=== PATIENT | male | born 1955 | race Caucasian/White ===

== ENCOUNTER 2018-03-25 10:30 | Emergency (ER) | payer OTHER ==
--- NOTE | 2018-03-25 12:23 | ED Physician Documentation ---
PD HPI BACK INJURY - Stated complaint Stated Complaint: BACK PX - History obtained from History obtained from: Patient - History of Present Illness Location: Lower Type of injury: Twist (he was supporting himself with one hand, bending over, and his hand slipped, causing a twist and bend abruptly for low back. With pain to the right low back.) Where injury occurred: Work Timing - onset: Today Timing - details: Abrupt onset, Still present Quality: Pain, Spasm, Other (does not radiate to the legs.) Improved by: Rest Worsened by: Moving, Palpating Associated symptoms: No: Fever, Weakness, Numbness, Incontinent of urine Contributing factors: No: Anticoagulated, Prior back surgery Similar symptoms before: Has not had sx before Recently seen: Not recently seen Review of Systems Constitutional: denies: Fever, Chills, Myalgias Nose: denies: Rhinorrhea / runny nose, Congestion Throat: denies: Sore throat Respiratory: denies: Cough GI: denies: Abdominal Pain, Nausea, Vomiting, Diarrhea Skin: denies: Rash, Lesions Musculoskeletal: reports: Back pain. denies: Neck pain Neurologic: denies: Focal weakness, Numbness PD PAST MEDICAL HISTORY - Past Medical History Past Medical History: Yes : Benign prostate hypertrophy - Past Surgical History Past Surgical History: Yes General: Appendectomy - Present Medications Home Medications: Ambulatory Orders Medication Instructions Recorded Confirmed Methocarbamol [Robaxin] 500 mg PO Q6H PRN #25 tablet 03/25/18 Naproxen [Naprosyn] 500 mg PO BID PRN #20 tablet 03/25/18 Tamsulosin [Flomax] 0.4 mg PO ONCE 03/25/18 03/25/18 Tramadol HCl 50 mg PO Q6H PRN #20 tablet 03/25/18 - Allergies Allergies/Adverse Reactions: Allergies Allergy/AdvReac Type Severity Reaction Status Date / Time No Known Drug Allergies Allergy Verified 03/25/18 10:52 - Social History Does the pt smoke?: No Smoking Status: Never smoker Does the pt drink ETOH?: Yes Does the pt have substance abuse?: No - Immunizations Immunizations are current?: Yes - POLST Patient has POLST: No PD ED PE NORMAL - Vitals Vital signs reviewed: Yes - General General: Alert and oriented X 3, Well developed/nourished, Other (appears in pain with ROM; guarding low back movement. ) - Cardiac Cardiac: RRR, No murmur - Respiratory Respiratory: Clear bilaterally - Abdomen Abdomen: Soft, Non tender - Male Male : Deferred - Rectal Rectal: Deferred - Back Back: No CVA TTP, No spinal TTP (tender to right adjacent muscles and at SI area. ) - Derm Derm: Normal color, Warm and dry, No rash - Extremities Extremities: No tenderness to palpate, Normal ROM s pain - Neuro Neuro: Alert and oriented X 3, No motor deficit, No sensory deficit, Other ( normal patellar reflexes. ) Results - Vitals Vitals: Oxygen O2 Source Room air - Rads (name of study) lumbar spine Radiology: Prelim report reviewed (normal) PD MEDICAL DECISION MAKING - ED course Complexity details: reviewed results, considered differential (sounds like muscular back pain but was abrupt injury, so got xrays. No other red flags one exam. ), d/w patient - Sepsis Event Vital Signs: Oxygen O2 Source Room air Departure - Departure Disposition: 01 Home, Self Care Clinical Impression: Lumbar strain Qualifiers: Encounter type: initial encounter Qualified Code(s): S39.012A - Strain of muscle, fascia and tendon of lower back, initial encounter Condition: Stable Record reviewed to determine appropriate education?: Yes Instructions: ED Sprain Strain Lumbar Prescriptions: Methocarbamol [Robaxin] 500 mg PO Q6H PRN #25 tablet PRN Reason: Spasms Naproxen [Naprosyn] 500 mg PO BID PRN #20 tablet PRN Reason: Pain Tramadol HCl 50 mg PO Q6H PRN #20 tablet PRN Reason: Pain Comments: Your x-rays appear normal with good alignment, disc spaces, vertebral shape. Presume you pulled some muscle and ligament and the low back with the injury. This can take several days to week or so to get better. Gentle stretching and heat and light activity are good. You can use some Tylenol or ibuprofen if needed for pains. If it does worsen more than some anti-inflammatories regularly such as naproxen or ibuprofen in conjunction with muscle relaxant methocarbamol and then Tylenol or tramadol if needed for pains. Physical treatments are good for this such as massage or chiropractic treatment. Recheck if not better over the next week. Forms: Activity restrictions Discharge Date/Time: 03/25/18 13:10
--- NOTE | 2018-03-25 13:04 | XRAY Report ---
Procedure Date: 03/25/2018 Accession Number: [id number] / [id number] Procedure: XR - Lumbar Spine 2 View CPT Code: FULL RESULT: EXAM: LUMBOSACRAL SPINE RADIOGRAPHY EXAM DATE: 03/25/2018 12:53 PM. CLINICAL HISTORY: Right low back pain after slip and twist. COMPARISONS: None. TECHNIQUE: 3 views. FINDINGS: Alignment: Slight anterior listhesis L3 on L4. Minimal thoracolumbar junction levoscoliosis. Bones: No fractures or bone lesions. Disks: Mild L3-L4 and L5-S1 disk space narrowing. Facets: Lower lumbar degenerative changes. Sacroiliac Joints: Unremarkable. IMPRESSION: Early degenerative changes lumbar spine with grade 1 anterior listhesis L3 on L4. Otherwise negative. RADIA
[2018-03-25 13:11] VITALS: BP 130/70
== END 2018-03-25 13:10 | disposition home or self-care (01) ==
LOC: ED 10:30
DX: S33.5XXA Sprain of ligaments of lumbar spine, initial encounter (principal); X50.9XXA Other and unspecified overexertion or strenuous movements or postures, initial encounter; Y99.0 Civilian activity done for income or pay
CPT/HCPCS: 72100; 99283

== ENCOUNTER 2018-09-07 09:40 | Day surgery (SDC) | payer OTHER ==
[2018-09-07] MEDS ORDERED: LIDO GARGLE 30 ML BOTTLE ONE (10:15)
[2018-09-07] MEDS ORDERED: LACTATED RINGERS 1,000 ML IV ONE ×2 (10:19→11:58)
[2018-09-07] MEDS ORDERED: MIDAZOLAM 2 MG/2 ML VIAL IVP ONE (10:55)
[2018-09-07] MEDS ORDERED: fentaNYL 250 MCG/5 ML VIAL IVP ONE (10:55)
[2018-09-07] MEDS ORDERED: BENZOCAINE/TETRACAINE/BUTAMBEN 20 GM TOP ONE (11:03)
[2018-09-07 13:06] VITALS: BP 118/68
== END 2018-09-07 09:41 | disposition home or self-care (01) ==
LOC: SDS 09:40
PROVIDERS: ATTEND Surgery
PROC: 0DJ08ZZ Inspection of Upper Intestinal Tract, Via Natural or Artificial Opening Endoscopic (ICD-10-PCS; 2018-09-07)
PROC: 0DBK8ZZ Excision of Ascending Colon, Via Natural or Artificial Opening Endoscopic (ICD-10-PCS; principal; 2018-09-07 10:45)
PROC: 0DBP8ZZ Excision of Rectum, Via Natural or Artificial Opening Endoscopic (ICD-10-PCS; 2018-09-07 10:45)
DX: Z12.11 Encounter for screening for malignant neoplasm of colon (principal); D12.2 Benign neoplasm of ascending colon; D12.8 Benign neoplasm of rectum; K64.8 Other hemorrhoids; K21.9 Gastro-esophageal reflux disease without esophagitis; R10.32 Left lower quadrant pain; R10.13 Epigastric pain; K40.90 Unilateral inguinal hernia, without obstruction or gangrene, not specified as recurrent; Z87.891 Personal history of nicotine dependence
CPT/HCPCS: 43235; 45380; 45385; A9270; J3010; J7120

== ENCOUNTER 2018-10-06 12:32 | Day surgery (SDC) | payer OTHER ==
[~2018-10-06 12:32] MED LIST: BUPIVACAINE 0.5% PF 30 ML VIAL ONE; ceFAZolin 2 GM/50 ML 2 GM/50 ML BAG IV ONE
[2018-10-06] MEDS ORDERED: LACTATED RINGERS 1,000 ML IV ONE ×2 (13:27→15:45)
--- NOTE | 2018-10-06 13:27 | ANESTHESIA ---
Pre-Anesthesia VS, & Labs - Diagnosis left inguinal hernia - Procedure left inguinal hernia repair Vital Signs: Temp Pulse Resp BP Pulse Ox 36.2 C L 58 L 16 130/85 H 98 10/06/18 12:43 10/06/18 12:43 10/06/18 12:43 10/06/18 12:43 10/06/18 12:43 Height 5 ft 11 in Weight (kg) 105 kg Body Mass Index 32.8 - NPO >8 hours - Lab Results Lab results reviewed: Yes Home Medications and Allergies Tamsulosin [Flomax] 0.4 mg PO DAILY 03/25/18 Allergies/Adverse Reactions: Allergies Allergy/AdvReac Type Severity Reaction Status Date / Time No Known Drug Allergies Allergy Verified 10/07/18 10:45 Anes History & Medical History - Anesthetic History Anesthesia Complications: reports: No previous complications Family history of Anesthesia Complications: Denies Family history of Malignant Hyperthermia: Denies - Medical History Cardiovascular: reports: None Pulmonary: reports: None Gastrointestinal: reports: None Urinary: reports: Benign prostate hypertrophy Musculoskeletal: reports: Osteoarthritis Endocrine/Autoimmune: reports: None Skin: reports: None Smoking Status: Never smoker - Surgical History General: Appendectomy Exam General: Alert, Oriented x3, Cooperative, No acute distress Dental: Other (caps) Mouth Openin Fingerbreadth Neck Mobility: Normal Mallampati classification: II Thyromental Distance: greater than 6 cm Respiratory: Lungs clear Cardiovascular: Regular rate, Normal S1, Normal S2, No murmurs Mental/Cognitive Status: Alert/Oriented X3, Normal for patient Cognitive Status: Within normal limits Plan Anesthesia Type: General Consent for Procedure(s) Verified and Reviewed: Yes Code Status: Attempt Resuscitation ASA classification: 2-Mild systemic disease Is this case an emergency?: No
[2018-10-06] MEDS ORDERED: BUPIVACAINE 0.5% PF 30 ML VIAL SUBQ ONE (14:34)
[2018-10-06] MEDS ORDERED: ROCURONIUM 50 MG/5 ML VIAL IVP ONE (15:20)
[2018-10-06] MEDS ORDERED: ceFAZolin 2 GM/50 ML BAG IV ONE (15:20)
[2018-10-06] MEDS ORDERED: LIDOCAINE-MPF 2% 5 ML VIAL IM ONE (15:20)
[2018-10-06] MEDS ORDERED: PROPOFOL 200 MG/20 ML VIAL IVP ONE (15:20)
[2018-10-06] MEDS ORDERED: KETOROLAC 30 MG/ML VIAL IVP ONE (15:20)
[2018-10-06] MEDS ORDERED: ePHEDrine 50 MG/ML VIAL IVP ONE (15:20)
[2018-10-06] MEDS ORDERED: ONDANSETRON 4 MG/2 ML VIAL IVP ONE (15:20)
[2018-10-06] MEDS ORDERED: MIDAZOLAM 2 MG/2 ML VIAL IVP ONE (15:20)
[2018-10-06] MEDS ORDERED: ONDANSETRON 4 MG/2 ML VIAL IVP PRN (15:37)
[2018-10-06] MEDS ORDERED: HYDROmorphone 0.5 MG/0.5 ML SYRINGE IVP PRN (15:37)
[2018-10-06] MEDS ORDERED: HYDROcod/ACETAM 5/325 MG TABLET PO PRN (15:37)
--- NOTE | 2018-10-06 15:40 | OPERATIVE REPORT ---
Operative Report - General Procedure Date: 10/06/18 Planned Procedure: Left inguinal herniorrhaphy Pre-Op Diagnosis: Left inguinal hernia Procedure Performed: Left indirect inguinal herniorrhaphy with mesh Excision cord lipoma (left) Post Op Diagnosis: Left indirect inguinal hernia and cord lipoma - Procedure Note Primary Surgeon: Spencer Colon MD Anesthesia Provider: Spencer Velarde MD Anesthesia Technique: General ET tube, Local (30 mL of half percent Marcaine) IV Fluids (mL): 750 Estimated Blood Loss (mL): 5 Drain/Tube Type: Other (None.) Complications: None. - Other Other Information/Narrative: OPERATIVE DESCRIPTION/REPORT: After verbal and written informed consent was obtained detailing the risks of infection, bleeding requiring transfusion with its risks, nerve injury, and , and after I met with the patient confirming the surgery and the site of the surgery and after initialing the site of the surgery with a surgical marker, the patient was brought to the operative suite and placed supine on the operating table. Great care was taken to avoid pressure points to prevent pressure necrosis or nerve injury. Monitoring devices were applied along with TEDs and pneumatic compressive stockings (to prevent DVT). The patient received preoperative antibiotics for surgical prophylaxis. Dr. Spencer Velarde sedated and anesthetized the patient for the entire procedure. The patient was prepped and draped in the usual sterile manner. With the patient draped my initials were clearly visible. A "time in" then confirmed that the patient was identified with 3 identifiers (name, date and medical record number), the history and physical was in the chart, the signed consent confirming the procedure was in the chart, the patient was in the correct position, the aforementioned prophylactic measures were in place or given, we had the correct personnel and equipment to complete the procedure and that anesthesia, surgery and nursing were given an opportunity to express any concerns. With the agreement of everyone in the room, we proceeded with the operation. A standard inguinal incision was made and dissection was carried down to the external oblique aponeurosis using a combination of Metzenbaum scissors and Bovie electrocautery. The external oblique aponeurosis was cleared of overlying adherent tissue, and the external ring was delineated. The external oblique was the incised with a scalpel and this incision was carried out to the external ring using Metzenbaum scissors. Having exposed the inguinal canal, the cord structures were from the canal using blunt dissection, and a Mcadoo drain was placed around the cord structures at the level of the pubic tubercle. This Mcadoo drain was then used to retract the cord structures as needed. Adherent cremasteric muscle was dissected free from the cord using Bovie electrocautery. The cord was then explored using a combination of sharp and blunt dissection, and the sac was found anteromedially to the cord structures. Dissection along the cord structures also found a lipoma that was dissected back to the internal ring, ligated with a 3-0 Vicryl, transected, the stump cauterized and allowed to retract back into the abdomen. The sac was dissected free from the cord structures using a combination of blunt dissection and Bovie electrocautery. Once preperitoneal fat was encountered, the dissection stopped and the sac was high ligated with a 2-0 PDS, transected, the stump cauterized and allowed to retract back into the abdominal cavity and an extra-large Bard Perfix plug (Ref# [id number], Lot#[id number], use date 2023-02-28) inserted into the internal ring. The plug was secured to the internal ring by interrupted 2-0 PDS sutures. The Bard Perfix enlay patch was then placed on the floor of the inguinal canal and secured in place using interrupted 0 PDS sutures to the conjoined tendon superiorly, pubic tubercle medially, and shelving edge inferiorly. By reinforcing the floor with the enlay patch, a new internal ring was thus formed. The Geoffrey drain was removed. The wound was then irrigated using sterile saline, and hemostasis was obtained using Bovie electrocautery. The incision in the external oblique was approximated using a 3-0 Vicryl in a running fashion, thus reforming the external ring. The fascia and skin was then injected with the 1/2% marcaine for pool hand pain control. The skin incision was approximated with 4-0 Monocryl in a subcuticular fashion. The skin was prepped with benzoin and steristrips were applied. At this point a time out was performed that confirmed that all the counts were correct, the procedure that was performed, the blood loss, the IV fluids administered, and the patients condition. A dressing was then applied. Gentle downward traction ensured that the testes were well seated in the scrotum. Having tolerated the procedure well, the patient was taken to short stay in good and stable condition. Dragon disclaimer: This document was created in part using voice recognition technology. Because of the inherent limitations of the system ([employer] user manual states that the licensee understands that speech recognition is a statistical process and that recognition errors are inherent in the process), occasional same sounding word substitutions and grammatical errors do occur and persist despite proofreading. Please read this document for context.
[2018-10-06 16:23] VITALS: BP 126/76
== END 2018-10-06 12:33 | disposition home or self-care (01) ==
LOC: SDS 12:32
PROVIDERS: ATTEND Surgery
PROC: 0VBG0ZZ Excision of Left Spermatic Cord, Open Approach (ICD-10-PCS; 2018-10-06)
PROC: 0YU60JZ Supplement Left Inguinal Region with Synthetic Substitute, Open Approach (ICD-10-PCS; principal; 2018-10-06 14:00)
DX: K40.90 Unilateral inguinal hernia, without obstruction or gangrene, not specified as recurrent (principal); D17.6 Benign lipomatous neoplasm of spermatic cord; Z87.891 Personal history of nicotine dependence; N40.0 Benign prostatic hyperplasia without lower urinary tract symptoms
CPT/HCPCS: 49505; 55520; C1781; J0690; J7120

== ENCOUNTER 2018-10-07 10:35 | Emergency (ER) | payer OTHER ==
[2018-10-07 11:32] LABS: BILIRUBIN,URINE NEGATIVE (NEGATIVE); GLUCOSE, URINE (UA) NEGATIVE (NEGATIVE); KETONES,URINE (UA) NEGATIVE (NEGATIVE); LEUKOCYTE ESTERASE, URINE NEGATIVE (NEGATIVE); NITRITE,URINE NEGATIVE (NEGATIVE); OCCULT BLOOD,URINE TRACE-INTA (NEGATIVE); PROTEIN,URINE NEGATIVE (NEGATIVE); UROBILINOGEN,URINE 0.2 (NORMAL) E.U./dL (NORMAL)
[2018-10-07 11:35] LABS: CLARITY,URINE CLEAR (CLEAR)
[2018-10-07] MEDS ORDERED: LIDOCAINE 2% URO-JET 5 ML SYRINGE UR STA (11:37)
[2018-10-07 11:58] VITALS: BP 127/81
--- NOTE | 2018-10-07 12:54 | ED Physician Documentation ---
History of Present Illness - Stated complaint Stated Complaint: POST SURGICAL COMPLICATIONS - Chief complaint Chief Complaint: General - Additonal information Additional information: 63-year-old male presents to the emergency department for evaluation of urinary retention which started yesterday after a surgical procedure. The patient does have a history of BPH and takes Flomax. The patient has been urinating but only in very small amounts. The patient reports suprapubic pain. The patient denies fevers or flank pain or relieving factors. No other associated symptoms. Symptoms are described as moderate. No relieving factors Review of Systems Constitutional: denies: Fever, Chills Eyes: denies: Discharge Ears: denies: Ear pain Nose: denies: Congestion Throat: denies: Sore throat GI: reports: Abdominal Pain : reports: Unable to Void. denies: Dysuria, Incontinent, Hematuria Neurologic: denies: Generalized weakness PD PAST MEDICAL HISTORY - Past Medical History Cardiovascular: None Respiratory: None Endocrine/Autoimmune: None GI: None : Benign prostate hypertrophy HEENT: Chronic vision loss Psych: None Musculoskeletal: Osteoarthritis Derm: None - Past Surgical History Past Surgical History: Yes General: Appendectomy - Present Medications Home Medications: Ambulatory Orders Medication Instructions Recorded Confirmed Tamsulosin [Flomax] 0.4 mg PO DAILY 03/25/18 10/06/18 - Allergies Allergies/Adverse Reactions: Allergies Allergy/AdvReac Type Severity Reaction Status Date / Time No Known Drug Allergies Allergy Verified 10/07/18 10:45 - Social History Does the pt smoke?: No Smoking Status: Never smoker Does the pt drink ETOH?: Yes Does the pt have substance abuse?: No - Immunizations Immunizations are current?: Yes - POLST Patient has POLST: No PD ED PE NORMAL - General General: Alert and oriented X 3, No acute distress - HEENT HEENT: Atraumatic, PERRL, EOMI - Cardiac Cardiac: RRR - Respiratory Respiratory: No respiratory distress, Clear bilaterally - Abdomen Abdomen: Soft. No: Non tender (Suprapubic tenderness) - Extremities Extremities: No deformity - Neuro Neuro: Alert and oriented X 3, Normal speech - Psych Psych: Normal affect Results - Vitals Vitals: Vital Signs - 24 hr 10/07/18 10/07/18 10:41 11:57 Temperature 36.4 C L 37.1 C Heart Rate 60 55 L Respiratory 14 18 Rate Blood Pressure 153/76 H 127/81 H O2 Saturation 100 98 Oxygen O2 Source Room air - Labs Labs: Laboratory Tests 10/07/18 11:15 Urine Color YELLOW Urine Clarity CLEAR Urine pH 7.0 Ur Specific [place] 1.010 Urine Protein NEGATIVE Urine Glucose (UA) NEGATIVE Urine Ketones NEGATIVE Urine Occult Blood TRACE-INTA Urine Nitrite NEGATIVE Urine Bilirubin NEGATIVE Urine Urobilinogen 0.2 (NORMAL) Ur Leukocyte Esterase NEGATIVE Ur Microscopic Review NOT INDICATED Urine Culture Comments NOT INDICATED PD MEDICAL DECISION MAKING - ED course ED course: A Kessler catheter was placed due to significant urinary retention. The patient will be discharged home with a leg bag. The patient unfortunately does not have primary care to follow-up with. I discussed the case with his surgeon who agrees to follow-up on Friday for a catheter removal. I have given the patient the name of the local urology group, unfortunately they do not take call for us. The patient was given instructions on Kessler catheter care. The patient will return to the emergency department for any worsening or any concerns Departure - Departure Disposition: 01 Home, Self Care Clinical Impression: Urinary retention Condition: Good Instructions: ED Catheter Care [place], ED Retention Urinary Male Follow-Up: Joce Son DO [Physician No Access] - (These call to schedule a follow-up appointment with the urology clinic at [facility]) Spencer Colon MD [Provider Admit Priv/Credential] - (Please call the office today for a follow-up appointment on Friday to have your Kessler catheter removed by the nursing staff in clinic) Comments: Please return to the emergency department immediately for any worsening or any concerns Discharge Date/Time: 10/07/18 13:19
== END 2018-10-07 13:19 | disposition home or self-care (01) ==
LOC: ED 10:35
DX: N40.1 Benign prostatic hyperplasia with lower urinary tract symptoms (principal); R33.8 Other retention of urine; Z98.890 Other specified postprocedural states
CPT/HCPCS: 51702; 81001; 81003; 87086; 99283

== ENCOUNTER 2018-11-06 13:51 | Outpatient (CLI) | payer OTHER ==
--- NOTE | 2018-11-06 16:13 | Ultrasound Report ---
Reason: PAIN BEHIND LEFT KNEE X 2 DAYS Procedure Date: 11/06/2018 Accession Number: [id number] / [id number] Procedure: US - Duplex Ext Veins Left CPT Code: FULL RESULT: EXAM: LEFT LOWER EXTREMITY VENOUS ULTRASOUND EXAM DATE: 11/06/2018 04:02 PM. CLINICAL HISTORY: PAIN BEHIND LEFT KNEE X 2 DAYS. COMPARISON: None. TECHNIQUE: Real-time sonographic vascular imaging was performed by the edge beader through the left lower extremity utilizing both color-flow and Doppler spectral analysis. Multiple retail customer service representative static images were saved for review. FINDINGS: Common Femoral Vein (CFV): Normal. CFV-GSV Junction: Normal. Profunda Femoral Vein (PFV): Normal. Femoral Vein (FV) Prox: Normal. Femoral Vein (FV) Mid: Normal. Femoral Vein (FV) Dist: Normal. Popliteal Vein: Normal. Posterior Tibial Veins: Normal. Peroneal Veins: Normal. Contralateral Side CFV: Normal. Other: Incidental note is made of a simple fluid containing oval shaped lesion in left medial popliteal fossa, measuring 2.2 x 3.7 x 0.8 cm, consistent with Bravo's cyst. IMPRESSION: No evidence for deep venous thrombosis in left lower extremity. RADIA
== END 2018-11-06 13:52 | disposition home or self-care (01) ==
LOC: DI 13:51
PROVIDERS: ATTEND Physician Assistant Medical
DX: M25.562 Pain in left knee (principal)

== ENCOUNTER 2018-11-20 08:49 | Emergency (ER) | payer OTHER ==
[2018-11-20 08:58] VITALS: BP 108/77
--- NOTE | 2018-11-20 10:13 | ED Physician Documentation ---
PD HPI LOWER EXT INJURY - Stated complaint Stated Complaint: LT ANKLE INJURY - Chief complaint Chief Complaint: Ext Problem - History obtained from History obtained from: Patient - History of Present Illness PD HPI LOW EXT INJURY LOCATION: Left, Ankle Type of injury: Twist Where injury occurred: Work Timing - onset: Last night Timing - duration: Days (1) Timing - details: Abrupt onset Pain level max: 6 Pain level now: 3 Improved by: Rest, Ice, Immobilization Worsened by: Moving, Palpating, Other (walking) Associated symptoms: No: Weakness, Numbness, Tingling, Swelling Contributing factors: Work related. 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 Increased pain with ambulation this morning Review of Systems Constitutional: denies: Fever Musculoskeletal: denies: Neck pain, Back pain PD PAST MEDICAL HISTORY - Past Medical History Cardiovascular: None Respiratory: None Endocrine/Autoimmune: None GI: None : Benign prostate hypertrophy HEENT: Chronic vision loss Psych: None Musculoskeletal: Osteoarthritis Derm: None - Past Surgical History Past Surgical History: Yes General: Appendectomy - Present Medications Home Medications: Ambulatory Orders Medication Instructions Recorded Confirmed Tamsulosin [Flomax] 0.4 mg PO DAILY 03/25/18 11/20/18 Meloxicam [Mobic] 15 mg PO DAILY PRN #20 tablet 11/20/18 - Allergies Allergies/Adverse Reactions: Allergies Allergy/AdvReac Type Severity Reaction Status Date / Time No Known Drug Allergies Allergy Verified 11/20/18 08:58 - Social History Does the pt smoke?: No Smoking Status: Never smoker Does the pt drink ETOH?: Yes Does the pt have substance abuse?: No - Immunizations Immunizations are current?: Yes - POLST Patient has POLST: No PD ED PE NORMAL - Vitals Vital signs reviewed: Yes - General General: Alert and oriented X 3, No acute distress - Derm Derm: Warm and dry - Extremities Extremities: Other (Tender to palpation over the distal lateral malleolus. Neurovascularly intact. No tenderness over the foot. Otherwise normal examination of the left lower extremity) - Neuro Neuro: Alert and oriented X 3 Results - Vitals Vitals: Vital Signs - 24 hr 11/20/18 08:57 Temperature 36.7 C Heart Rate 61 Respiratory 16 Rate Blood Pressure 108/77 O2 Saturation 99 Oxygen O2 Source Room air - Rads (name of study) Left ankle x-ray Radiology: Prelim report reviewed, EMP read contemporaneously, See rad report (No fracture evident. ) PD MEDICAL DECISION MAKING - ED course Complexity details: reviewed results, re-evaluated patient, considered differential, d/w patient ED course: 63-year-old male presents to the emergency department with left ankle pain. No acute findings on x-ray. Ambulating well. Placed in an Aircast for comfort. Will weight-bear as tolerated. Follow-up with his doctor in 1 week if not better. L and I paperwork filled out. Patient counseled regarding signs and symptoms for which I believe and urgent re-evaluation would be necessary. Patient with good understanding of and agreement to plan and is comfortable going home at this time This document was made in part using voice recognition software. While efforts are made to proofread this document, sound alike and grammatical errors may occur. Departure - Departure Disposition: 01 Home, Self Care Clinical Impression: Left ankle sprain Qualifiers: Encounter type: initial encounter Involved ligament of ankle: unspecified ligament Qualified Code(s): S93.402A - Sprain of unspecified ligament of left ankle, initial encounter Condition: Good Instructions: ED Sprain Ankle W X Ray Follow-Up: Your,doctor in 1 week [Other] Prescriptions: Meloxicam [Mobic] 15 mg PO DAILY PRN #20 tablet PRN Reason: pain Comments: Your x-ray does not show any fracture today. Wear the splint for comfort. you may bear weight as tolerated. Return if you worsen. Forms: Activity restrictions Discharge Date/Time: 11/20/18 10:50
--- NOTE | 2018-11-20 10:27 | XRAY Report ---
Reason: fall, L ankle pain last night Procedure Date: 11/20/2018 Accession Number: [id number] / [id number] Procedure: XR - Ankle 3 View LT CPT Code: FULL RESULT: EXAM: LEFT ANKLE RADIOGRAPHY EXAM DATE: 11/20/2018 10:10 AM. CLINICAL HISTORY: Fall, L ankle pain last night. Rolled ankle on uneven ground/log. COMPARISON: None. TECHNIQUE: 3 views. FINDINGS: Bones: Probable secondary ossicle inferior to medial malleolus with smooth margins. No convincing fractures or bone lesions. Joints: Normal. No effusion. No subluxations. The ankle mortise is normally aligned. Soft Tissues: Tiny plantar calcaneal enthesophyte. No significant soft tissue swelling. IMPRESSION: No fracture evident. RADIA
== END 2018-11-20 10:50 | disposition home or self-care (01) ==
LOC: ED 08:49
DX: S93.402A Sprain of unspecified ligament of left ankle, initial encounter (principal); X50.1XXA Overexertion from prolonged static or awkward postures, initial encounter; Y93.89 Activity, other specified; Y99.0 Civilian activity done for income or pay
CPT/HCPCS: 1040M; 73610; 99283